=== PATIENT | female | born 1990 | race Caucasian/White ===

== ENCOUNTER 2016-10-15 01:08 | Inpatient (IN) | payer BC ==
--- NOTE | 2016-10-02 19:02 | PROGRESS NOTE:Antepartum ---
Assessment and Plan - Date of Encounter Date of Encounter: 10/15/16 (1) Term Status: Acute Assessment and plan: Patient in early active labor. AROM at 2am of clear fluid. Continue expectant management. Current Visit: Yes - Time Spent With Patient Total time spent with greater than 50% in coordination of care (as documented) at patient's floor/unit and/or counseling patient: POTASH FLAKER: Antepartum PN Subj - Subjective Interval history: 26 yo with EDC of October 26 2016 by certain LMP of 01/20/16. She is 38 3/7 weeks. She has been having increasing abdominal pains through the day. She had a hard time characterizing them. It was associated with increased d/c and scant pink blood. No large GOF. [place] like she had decreased movement. I met her at my clinic in [place]. She was placed on a monitor with FHT's 150's and very frequent movement. Contractions q 2-3 min and this was the pain she felt. She rated it 5-6/10 at it's worst but varied in strength. On the drive in her contractions remained q 2-4 minutes and increasing in strength. PMHx: none PSHX: T&A age 5 Meds: PNV, Benefiber, Pepcid, Tums NKDA SHX: to [facility], medical front desk coordinator for [facility], No TOB, ETOH, MJ, IVDA FHX: Father of Colon CA at 51, MGF Lung CA, MGM Breast CA in 30's Mom Healthy Prenatals: GBS neg, A+, Ab neg, RI, PAP nl, H/H 1546, HIV NR, RPR Neg, Hep B neg. GC/CT neg. declined FTRA, MSAFP neg, 1 hour GTT 122, 20 wk U/S S=D, anterior placenta. Had flu shot at [facility], Adacel 09/03/16, Antepartum ROS: vaginal bleeding (scant pink), contractions (q 2-4), movement normal, no loss of fluid, no headache, no shortness of breath, no swelling POTASH FLAKER: Antepartum PN Obj Exam - Latest Vital Signs and I&O Latest Vital Signs/I&O: 10/15/16 01:27 64 inches , 184# 10/15/16 01:27 - Exam Heart Monitor: category II (at time of AROM significantly more variability ) Heart Rhythm: Present: regular Extremities: Present: normal. Absent: tenderness, edema Cervical Dilatation Degree: 5 Cervical Effacement Percentage: 90 Station: -1
[2016-10-15] MEDS ORDERED: ONDANSETRON HCL 4 MG/2 ML VIAL IV PRN (01:15)
[2016-10-15] MEDS ORDERED: LIDOCAINE HCL/PF 1% 30 ML VIAL SUBCUT PRN (01:15)
[2016-10-15] MEDS ORDERED: HOME MEDICATION LIST NEEDED 1 EA EACH MISC ONE (01:15)
[2016-10-15] MEDS ORDERED: OXYTOCIN/NORMAL SALINE 30 UNIT/500 ML BAG IV SCH ×2 (01:15→12:00)
[2016-10-15] MEDS ORDERED: MISOPROSTOL 200 MCG TABLET PO PRN (01:15)
[2016-10-15 02:54] LABS: URINE MUCUS NONE SEEN (Up to 25%)
[2016-10-15 02:56] LABS: BASOPHILS 0.3 % (0.0-2.0); EOSINOPHILS 0.3 % (0.0-6.0); HEMATOCRIT 39.9 % (36.0-48.0); HEMOGLOBIN 13.9 g/dL (12.0-16.0); LYMPHOCYTES 15.6 % (20.0-40.0); LYMPHOCYTES# 2.5 X 10^3uL (0.8-3.8); MEAN CELL VOLUME 90.6 fL (80.0-100.0); MEAN CORPUS. HGB CONCENTRATION 34.9 g/dL (32.0-36.0); MEAN CORPUSCULAR HEMOGLOBIN 31.6 pg (29.0-35.0); MEAN PLATELET VOLUME 10.4 fL (7.4-10.4); MONOCYTES 6.5 % (2.0-10.0); NEUTROPHILS 77.3 % (54.0-75.0); NEUTROPHILS# 12.6 X 10^3uL (2.6-6.7); PLATELET COUNT 225 X 10^3uL (130-440); RED CELL DISTRIBUTION WIDTH 12.8 % (11.5-14.5); WHITE BLOOD COUNT 16.1 X 10^3uL (3.9-10.7)
[2016-10-15] MEDS: FENTANYL 100 MCG/2 ML VIAL IV PRN ×4 (03:00→03:26)
[2016-10-15] MEDS ORDERED: LACTATED RINGERS 1,000 ML IV ONE (03:11)
[2016-10-15 04:13] LABS: URINE APPEARANCE CLOUDY; URINE COLOR YELLOW; URINE LEUKOCYTE ESTERASE 25 WBC/uL (1+) (NEGATIVE); URINE NITRITE NEGATIVE (NEGATIVE); URINE PROTEIN 10mg/dL (trace) (NEG - TRACE); URINE SPECIFIC GRAVITY 1.025 (0.001-1.035)
[2016-10-15 04:14] LABS: URINE BILIRUBIN NEGATIVE (NEGATIVE); URINE BLOOD 250 Ery/uL (3+) (NEGATIVE); URINE GLUCOSE NORMAL (NEGATIVE); URINE KETONE NEGATIVE (NEGATIVE); URINE RBC 0-5/hpf (0-5/hpf); URINE UROBILINOGEN 0.2mg/dL (Normal) (NEG-1mg/dL)
[2016-10-15] MEDS: LACTATED RINGERS 1,000 ML IV SCH ×4 (04:50→12:22)
--- NOTE | 2016-10-15 05:25 | PROGRESS NOTE:Antepartum ---
Assessment and Plan - Date of Encounter Date of Encounter: 10/15/16 (1) Term Status: Acute Assessment and plan: Patient in active labor. AROM at 2am of clear fluid. Continue expectant management. Anesthesia here for ROXANNE. Current Visit: Yes - Time Spent With Patient Total time spent with greater than 50% in coordination of care (as documented) at patient's floor/unit and/or counseling patient: SPECIAL CRIMES INVESTIGATOR: Antepartum PN Subj - Subjective Interval history: Pain no longer tolerable. Desires ROXANNE. Ctx q 2. Patient reports: pain poorly controlled Antepartum ROS: vaginal bleeding (scant pink), contractions (q 2-4), loss of fluid (clear), movement normal, no headache, no shortness of breath, no swelling SPECIAL CRIMES INVESTIGATOR: Antepartum PN Obj Exam - Latest Vital Signs and I&O Latest Vital Signs/I&O: Vital Signs Temp 35.8 C L 10/15/16 05:15 Pulse 109 H 10/15/16 05:15 Resp 20 10/15/16 05:15 BP 136/77 10/15/16 05:15 Pulse Ox 95 10/15/16 01:40 Intake & Output 10/14/16 10/14/16 10/15/16 05:59 17:59 05:59 Intake Total 120 Balance 120 Weight 84.368 kg Intake: Oral 120 Other: Urine Appearance Clear Urine Color Yellow Stool Size Small Stool Characteristics Soft Formed Voiding Method Toilet # Voids 1 # Bowel Movements 1 - Exam Heart Monitor: category II (Accels but occasional variables, Excellent variabiliity) Heart Rhythm: Present: regular Extremities: Present: normal. Absent: tenderness, edema Cervical Dilatation Degree: 7 Cervical Effacement Percentage: 100 Station: +1 - Lab Labs: Laboratory Last Values WBC 16.1 X 10^3uL (3.9-10.7) H 10/15/16 01:45 RBC 4.40 X 10^6uL (4.20-6.10) 10/15/16 01:45 Hgb 13.9 g/dL (12.0-16.0) 10/15/16 01:45 Hct 39.9 % (36.0-48.0) 10/15/16 01:45 MCV 90.6 fL (80.0-100.0) 10/15/16 01:45 MCH 31.6 pg (29.0-35.0) 10/15/16 01:45 MCHC 34.9 g/dL (32.0-36.0) 10/15/16 01:45 RDW 12.8 % (11.5-14.5) 10/15/16 01:45 Plt Count 225 X 10^3uL (130-440) 10/15/16 01:45 MPV 10.4 fL (7.4-10.4) 10/15/16 01:45 Neutrophils % 77.3 % (54.0-75.0) H 10/15/16 01:45 Lymphocytes % 15.6 % (20.0-40.0) L 10/15/16 01:45 Eosinophils % 0.3 % (0.0-6.0) 10/15/16 01:45 Basophils % 0.3 % (0.0-2.0) 10/15/16 01:45 Neutrophils # 12.6 X 10^3uL (2.6-6.7) H 10/15/16 01:45 Lymphocytes # 2.5 X 10^3uL (0.8-3.8) 10/15/16 01:45 Monocytes 6.5 % (2.0-10.0) 10/15/16 01:45 Monocytes # 1.0 X 10^3uL (0.2-1.0) 10/15/16 01:45 Eosinophils # 0.0 X 10^3uL (0.0-0.4) 10/15/16 01:45 Basophils # 0.0 X 10^3uL (0.0-0.1) 10/15/16 01:45 Urine Color Yellow 10/15/16 01:35 Urine Appearance Cloudy A 10/15/16 01:35 Urine pH 6.0 (5-7) 10/15/16 01:35 Ur Specific [place] 1.025 (0.001-1.035) 10/15/16 01:35 Urine Protein 10mg/dl (trace) (NEG - TRACE) 10/15/16 01:35 Urine Ketones Negative (NEGATIVE) 10/15/16 01:35 Urine Blood 250 greer/ul (3+) (NEGATIVE) A 10/15/16 01:35 Urine Nitrate Negative (NEGATIVE) 10/15/16 01:35 Urine Bilirubin Negative (NEGATIVE) 10/15/16 01:35 Urine Urobilinogen 0.2mg/dl (normal) (NEG-1mg/dL) 10/15/16 01:35 Ur Leukocyte Esterase 25 wbc/ul (1+) (NEGATIVE) A 10/15/16 01:35 Urine RBC 0-5/hpf (0-5/hpf) 10/15/16 01:35 Urine WBC 25-50/hpf (0-4/hpf) A 10/15/16 01:35 Ur Squamous Epith Cells 5-10/hpf (<= 15/hpf) 10/15/16 01:35 Urine Bacteria 20-50 organisms/hpf (<10/hpf) A 10/15/16 01:35 Urine Mucus None seen (Up to 25%) 10/15/16 01:35 Urine Glucose Normal (NEGATIVE) 10/15/16 01:35
[2016-10-15] MEDS ORDERED: EPHEDrine SULFATE 50 MG/ML VIAL IV PRN (06:30)
[2016-10-15] MEDS ORDERED: BUPIVACAINE HCL/PF 0.25% 30 ML VIAL IV ONE (06:30)
[2016-10-15 06:39] LABS: ABO GROUP TYPE A
[2016-10-15 06:40] LABS: ANTIBODY SCREEN NEGATIVE; RH TYPE POSITIVE
--- NOTE | 2016-10-15 06:42 | PROGRESS NOTE:Antepartum ---
Assessment and Plan - Date of Encounter Date of Encounter: 10/15/16 (1) Term Status: Acute Assessment and plan: Patient in active labor. AROM at 2am of clear fluid. Continue expectant management. Difficult ROXANNE but in excellent position now. Patient has had relief for 1 hour from first attempt /test dose. Unable to push bolus so catheter replaced but she is comfortable. Current Visit: Yes - Time Spent With Patient Total time spent with greater than 50% in coordination of care (as documented) at patient's floor/unit and/or counseling patient: MACHINE BURRER: Antepartum PN Subj - Subjective Patient reports: pain poorly controlled Antepartum ROS: vaginal bleeding (scant pink), contractions (q 2-4), loss of fluid (clear), movement normal, no headache, no shortness of breath, no swelling MACHINE BURRER: Antepartum PN Obj Exam - Latest Vital Signs and I&O Latest Vital Signs/I&O: Vital Signs Temp 36.7 C 10/15/16 06:15 Pulse 116 H 10/15/16 05:55 Resp 16 10/15/16 06:15 BP 127/79 10/15/16 05:55 Pulse Ox 94 10/15/16 06:15 Intake & Output 10/14/16 10/15/16 10/15/16 17:59 05:59 17:59 Intake Total 2120 Balance 2120 Weight 84.368 kg Intake: IV 2000 Left Introducer Sheath 1000 Forearm Lr 1000 ml Bag 1,000 ml @ 1000 125 mls/hr IV CONT VANESSA Rx#:[id number] Oral 120 Other: Urine Appearance Clear Urine Color Yellow Stool Size Small Stool Characteristics Soft Formed Voiding Method Toilet # Voids 1 # Bowel Movements 1 - Exam Heart Monitor: category II (Accels but occasional variables, Excellent variabiliity) Heart Rhythm: Present: regular Extremities: Present: normal. Absent: tenderness, edema Cervical Dilatation Degree: 8 Cervical Effacement Percentage: 100 Station: +1 - Lab Labs: Laboratory Last Values WBC 16.1 X 10^3uL (3.9-10.7) H 10/15/16 01:45 RBC 4.40 X 10^6uL (4.20-6.10) 10/15/16 01:45 Hgb 13.9 g/dL (12.0-16.0) 10/15/16 01:45 Hct 39.9 % (36.0-48.0) 10/15/16 01:45 MCV 90.6 fL (80.0-100.0) 10/15/16 01:45 MCH 31.6 pg (29.0-35.0) 10/15/16 01:45 MCHC 34.9 g/dL (32.0-36.0) 10/15/16 01:45 RDW 12.8 % (11.5-14.5) 10/15/16 01:45 Plt Count 225 X 10^3uL (130-440) 10/15/16 01:45 MPV 10.4 fL (7.4-10.4) 10/15/16 01:45 Neutrophils % 77.3 % (54.0-75.0) H 10/15/16 01:45 Lymphocytes % 15.6 % (20.0-40.0) L 10/15/16 01:45 Eosinophils % 0.3 % (0.0-6.0) 10/15/16 01:45 Basophils % 0.3 % (0.0-2.0) 10/15/16 01:45 Neutrophils # 12.6 X 10^3uL (2.6-6.7) H 10/15/16 01:45 Lymphocytes # 2.5 X 10^3uL (0.8-3.8) 10/15/16 01:45 Monocytes 6.5 % (2.0-10.0) 10/15/16 01:45 Monocytes # 1.0 X 10^3uL (0.2-1.0) 10/15/16 01:45 Eosinophils # 0.0 X 10^3uL (0.0-0.4) 10/15/16 01:45 Basophils # 0.0 X 10^3uL (0.0-0.1) 10/15/16 01:45 Urine Color Yellow 10/15/16 01:35 Urine Appearance Cloudy A 10/15/16 01:35 Urine pH 6.0 (5-7) 10/15/16 01:35 Ur Specific [place] 1.025 (0.001-1.035) 10/15/16 01:35 Urine Protein 10mg/dl (trace) (NEG - TRACE) 10/15/16 01:35 Urine Ketones Negative (NEGATIVE) 10/15/16 01:35 Urine Blood 250 greer/ul (3+) (NEGATIVE) A 10/15/16 01:35 Urine Nitrate Negative (NEGATIVE) 10/15/16 01:35 Urine Bilirubin Negative (NEGATIVE) 10/15/16 01:35 Urine Urobilinogen 0.2mg/dl (normal) (NEG-1mg/dL) 10/15/16 01:35 Ur Leukocyte Esterase 25 wbc/ul (1+) (NEGATIVE) A 10/15/16 01:35 Urine RBC 0-5/hpf (0-5/hpf) 10/15/16 01:35 Urine WBC 25-50/hpf (0-4/hpf) A 10/15/16 01:35 Ur Squamous Epith Cells 5-10/hpf (<= 15/hpf) 10/15/16 01:35 Urine Bacteria 20-50 organisms/hpf (<10/hpf) A 10/15/16 01:35 Urine Mucus None seen (Up to 25%) 10/15/16 01:35 Urine Glucose Normal (NEGATIVE) 10/15/16 01:35
[2016-10-15] MEDS ORDERED: BUPIVACAINE HCL/PF 0.5% 30 ML VIAL ONE (06:46)
[2016-10-15] MEDS: ROPIVACAINE HCL IN 0.9%NACL/PF 120 MG/60 ML SYRINGE ONE ×3 (07:25→16:58)
[2016-10-15] MEDS ORDERED: PHENYLEPHRINE HCL 10,000 MCG/ML VIAL IV PRN (07:26)
[2016-10-15] MEDS ORDERED: PHENYLEPHRINE HCL 10,000 MCG/ML VIAL ONE (07:35)
[2016-10-15] MEDS ORDERED: NORMAL SALINE FLUSH 10 ML ONE (07:35)
[2016-10-15] MEDS ORDERED: EPHEDrine SULFATE 50 MG/ML VIAL ONE (07:36)
[2016-10-15] MEDS ORDERED: METOCLOPRAMIDE HCL 10 MG/2 ML VIAL IV PRN (08:21)
[2016-10-15] MEDS ORDERED: FAMOTIDINE IN SALINE, ISO-OSM 20 MG/50 ML PIGGYBACK IV ONE (08:23)
--- NOTE | 2016-10-15 08:53 | PROGRESS NOTE:Antepartum ---
Assessment and Plan - Date of Encounter Date of Encounter: 10/15/16 (1) Term Status: Acute Assessment and plan: Patient in active labor. AROM at 2am of clear fluid. Continue expectant management. Difficult ROXANNE but in excellent position now. BP's now excellent. Category II with good variability. Backing off slightly on ROXANNE as very dense. Allow patient to labor down once complete. Current Visit: Yes - Time Spent With Patient Total time spent with greater than 50% in coordination of care (as documented) at patient's floor/unit and/or counseling patient: BRANCH MANAGER: Antepartum PN Subj - Subjective Interval history: Patient had some ROXANNE related hypotension that corrected with ephedrine. Now BP' s 110-120. no pain. Patient reports: pain well controlled, nausea Antepartum ROS: vaginal bleeding (scant pink), contractions (q 2-4), loss of fluid (clear), movement normal, no headache, no shortness of breath, no swelling BRANCH MANAGER: Antepartum PN Obj Exam - Latest Vital Signs and I&O Latest Vital Signs/I&O: Vital Signs Temp 36.6 C 10/15/16 07:59 Pulse 107 H 10/15/16 08:32 Resp 18 10/15/16 08:32 BP 116/66 10/15/16 08:32 Pulse Ox 95 10/15/16 08:32 Intake & Output 10/14/16 10/15/16 10/15/16 17:59 05:59 17:59 Intake Total 2120 1000 Output Total 200 Balance 2120 800 Weight 84.368 kg Intake: IV 2000 1000 Left Introducer Sheath 1000 Forearm Lr 1000 ml Bag 1,000 ml @ 1000 1000 125 mls/hr IV CONT VANESSA Rx#:[id number] Oral 120 Output: Urine 200 Uretheral (Cordero) 200 Other: Urine Appearance Clear Clear Urine Color Yellow Yellow Uretheral (Cordero) Yellow Stool Size Small Small Stool Characteristics Soft Soft Formed Formed Voiding Method Toilet Indwelling Catheter # Voids 1 # Bowel Movements 1 - Exam Heart Monitor: category II (Accels but occasional variables, Excellent variabiliity) Heart Rhythm: Present: regular Extremities: Present: normal. Absent: tenderness, edema Cervical Dilatation Degree: 9 Cervical Effacement Percentage: 100 Station: +1 - Lab Labs: Laboratory Last Values WBC 16.1 X 10^3uL (3.9-10.7) H 10/15/16 01:45 RBC 4.40 X 10^6uL (4.20-6.10) 10/15/16 01:45 Hgb 13.9 g/dL (12.0-16.0) 10/15/16 01:45 Hct 39.9 % (36.0-48.0) 10/15/16 01:45 MCV 90.6 fL (80.0-100.0) 10/15/16 01:45 MCH 31.6 pg (29.0-35.0) 10/15/16 01:45 MCHC 34.9 g/dL (32.0-36.0) 10/15/16 01:45 RDW 12.8 % (11.5-14.5) 10/15/16 01:45 Plt Count 225 X 10^3uL (130-440) 10/15/16 01:45 MPV 10.4 fL (7.4-10.4) 10/15/16 01:45 Neutrophils % 77.3 % (54.0-75.0) H 10/15/16 01:45 Lymphocytes % 15.6 % (20.0-40.0) L 10/15/16 01:45 Eosinophils % 0.3 % (0.0-6.0) 10/15/16 01:45 Basophils % 0.3 % (0.0-2.0) 10/15/16 01:45 Neutrophils # 12.6 X 10^3uL (2.6-6.7) H 10/15/16 01:45 Lymphocytes # 2.5 X 10^3uL (0.8-3.8) 10/15/16 01:45 Monocytes 6.5 % (2.0-10.0) 10/15/16 01:45 Monocytes # 1.0 X 10^3uL (0.2-1.0) 10/15/16 01:45 Eosinophils # 0.0 X 10^3uL (0.0-0.4) 10/15/16 01:45 Basophils # 0.0 X 10^3uL (0.0-0.1) 10/15/16 01:45 Urine Color Yellow 10/15/16 01:35 Urine Appearance Cloudy A 10/15/16 01:35 Urine pH 6.0 (5-7) 10/15/16 01:35 Ur Specific [place] 1.025 (0.001-1.035) 10/15/16 01:35 Urine Protein 10mg/dl (trace) (NEG - TRACE) 10/15/16 01:35 Urine Ketones Negative (NEGATIVE) 10/15/16 01:35 Urine Blood 250 greer/ul (3+) (NEGATIVE) A 10/15/16 01:35 Urine Nitrate Negative (NEGATIVE) 10/15/16 01:35 Urine Bilirubin Negative (NEGATIVE) 10/15/16 01:35 Urine Urobilinogen 0.2mg/dl (normal) (NEG-1mg/dL) 10/15/16 01:35 Ur Leukocyte Esterase 25 wbc/ul (1+) (NEGATIVE) A 10/15/16 01:35 Urine RBC 0-5/hpf (0-5/hpf) 10/15/16 01:35 Urine WBC 25-50/hpf (0-4/hpf) A 10/15/16 01:35 Ur Squamous Epith Cells 5-10/hpf (<= 15/hpf) 10/15/16 01:35 Urine Bacteria 20-50 organisms/hpf (<10/hpf) A 10/15/16 01:35 Urine Mucus None seen (Up to 25%) 10/15/16 01:35 Urine Glucose Normal (NEGATIVE) 10/15/16 01:35 ABO Group Type a 10/15/16 01:45 Rh Factor Positive 10/15/16 01:45 Antibody Screen Negative 10/15/16 01:45
[2016-10-15] MEDS ORDERED: ROPIVACAINE HCL IN 0.9%NACL/PF 120 MG/60 ML SYRINGE ONE ×2 (11:53→17:08)
--- NOTE | 2016-10-15 12:59 | PROGRESS NOTE:Antepartum ---
Assessment and Plan - Date of Encounter Date of Encounter: 10/15/16 (1) Term Status: Acute Assessment and plan: Patient with arrest of labor possibly due to inadequate contractions. No fever since AROM at 2am of clear fluid, fluid remains clear. Category II with good variability and occasional variables. Start PIT augmentation. Add Narcotics to [place] for improved pain control. Current Visit: Yes (2) Arrested active phase of labor Status: Acute Assessment and plan: Inadequate contraction pattern of 80 MVU. Add pitocin. IUPC in place. Current Visit: Yes - Time Spent With Patient Total time spent with greater than 50% in coordination of care (as documented) at patient's floor/unit and/or counseling patient: CALL CENTER MANAGER: Antepartum PN Subj - Subjective Interval history: Patient continuing to contract q 3 minutes. Increased pain. Anesthesia increased MAXWELL. No cervical change x 3 hours. Anterior rim. I just placed an IUPC and inadequate MVU at only 80. Patient reports: pain poorly controlled Antepartum ROS: vaginal bleeding (scant pink), contractions (q 2-3), loss of fluid (clear), movement normal, no headache, no shortness of breath, no swelling CALL CENTER MANAGER: Antepartum PN Obj Exam - Latest Vital Signs and I&O Latest Vital Signs/I&O: Vital Signs Temp 36.4 C L 10/15/16 12:03 Pulse 106 H 10/15/16 12:03 Resp 18 10/15/16 12:03 BP 126/77 10/15/16 12:30 Pulse Ox 93 10/15/16 12:03 Intake & Output 10/14/16 10/15/16 10/15/16 17:59 05:59 17:59 Intake Total 2120 1000 Output Total 200 Balance 2120 800 Weight 84.368 kg Intake: IV 2000 1000 Left Introducer Sheath 1000 Forearm Lr 1000 ml Bag 1,000 ml @ 1000 1000 125 mls/hr IV CONT VANESSA Rx#:[id number] Oral 120 Output: Urine 200 Uretheral (Cordero) 200 Other: Urine Appearance Clear Clear Urine Color Yellow Yellow Uretheral (Cordero) Yellow Stool Size Small Small Stool Characteristics Soft Soft Formed Formed Voiding Method Toilet Indwelling Catheter # Voids 1 # Bowel Movements 1 10/15/16 12:57 - Exam Heart Monitor: category II (Accels but occasional variables, Excellent variabiliity) Heart Rhythm: Present: regular Extremities: Present: normal. Absent: tenderness, edema Cervical Dilatation Degree: 9 Cervical Effacement Percentage: 100 Station: +1 - Lab Labs: Laboratory Last Values WBC 16.1 X 10^3uL (3.9-10.7) H 10/15/16 01:45 RBC 4.40 X 10^6uL (4.20-6.10) 10/15/16 01:45 Hgb 13.9 g/dL (12.0-16.0) 10/15/16 01:45 Hct 39.9 % (36.0-48.0) 10/15/16 01:45 MCV 90.6 fL (80.0-100.0) 10/15/16 01:45 MCH 31.6 pg (29.0-35.0) 10/15/16 01:45 MCHC 34.9 g/dL (32.0-36.0) 10/15/16 01:45 RDW 12.8 % (11.5-14.5) 10/15/16 01:45 Plt Count 225 X 10^3uL (130-440) 10/15/16 01:45 MPV 10.4 fL (7.4-10.4) 10/15/16 01:45 Neutrophils % 77.3 % (54.0-75.0) H 10/15/16 01:45 Lymphocytes % 15.6 % (20.0-40.0) L 10/15/16 01:45 Eosinophils % 0.3 % (0.0-6.0) 10/15/16 01:45 Basophils % 0.3 % (0.0-2.0) 10/15/16 01:45 Neutrophils # 12.6 X 10^3uL (2.6-6.7) H 10/15/16 01:45 Lymphocytes # 2.5 X 10^3uL (0.8-3.8) 10/15/16 01:45 Monocytes 6.5 % (2.0-10.0) 10/15/16 01:45 Monocytes # 1.0 X 10^3uL (0.2-1.0) 10/15/16 01:45 Eosinophils # 0.0 X 10^3uL (0.0-0.4) 10/15/16 01:45 Basophils # 0.0 X 10^3uL (0.0-0.1) 10/15/16 01:45 Urine Color Yellow 10/15/16 01:35 Urine Appearance Cloudy A 10/15/16 01:35 Urine pH 6.0 (5-7) 10/15/16 01:35 Ur Specific [place] 1.025 (0.001-1.035) 10/15/16 01:35 Urine Protein 10mg/dl (trace) (NEG - TRACE) 10/15/16 01:35 Urine Ketones Negative (NEGATIVE) 10/15/16 01:35 Urine Blood 250 greer/ul (3+) (NEGATIVE) A 10/15/16 01:35 Urine Nitrate Negative (NEGATIVE) 10/15/16 01:35 Urine Bilirubin Negative (NEGATIVE) 10/15/16 01:35 Urine Urobilinogen 0.2mg/dl (normal) (NEG-1mg/dL) 10/15/16 01:35 Ur Leukocyte Esterase 25 wbc/ul (1+) (NEGATIVE) A 10/15/16 01:35 Urine RBC 0-5/hpf (0-5/hpf) 10/15/16 01:35 Urine WBC 25-50/hpf (0-4/hpf) A 10/15/16 01:35 Ur Squamous Epith Cells 5-10/hpf (<= 15/hpf) 10/15/16 01:35 Urine Bacteria 20-50 organisms/hpf (<10/hpf) A 10/15/16 01:35 Urine Mucus None seen (Up to 25%) 10/15/16 01:35 Urine Glucose Normal (NEGATIVE) 10/15/16 01:35 ABO Group Type a 10/15/16 01:45 Rh Factor Positive 10/15/16 01:45 Antibody Screen Negative 10/15/16 01:45
[2016-10-15] MEDS ORDERED: NORMAL SALINE 10 ML VIAL ONE (13:20)
[2016-10-15] MEDS ORDERED: BUPIVACAINE HCL/PF 0.25% 10 ML VIAL INJ ONE (13:20)
--- NOTE | 2016-10-15 14:35 | PROGRESS NOTE:Antepartum ---
Assessment and Plan - Date of Encounter Date of Encounter: 10/15/16 (1) Term Status: Acute Assessment and plan: Patient with final centimeter of progress and now complete. No fever since AROM at 2am of clear fluid, fluid remains clear. Category II with good variability and occasional variables. Continue PIT augmentation at 4 mu, but will not increase due to variables but now progress. Added Narcotics to ROXANNE with significant improved pain control. Current Visit: Yes (2) Arrested active phase of labor Status: Acute Current Visit: Yes - Time Spent With Patient Total time spent with greater than 50% in coordination of care (as documented) at patient's floor/unit and/or counseling patient: ADMITTING COUNSELOR: Antepartum PN Subj - Subjective Patient reports: pain well controlled Antepartum ROS: vaginal bleeding (scant pink), contractions (q 2-3), loss of fluid (clear), movement normal, no headache, no shortness of breath, no swelling ADMITTING COUNSELOR: Antepartum PN Obj Exam - Latest Vital Signs and I&O Latest Vital Signs/I&O: Vital Signs Temp 37.1 C 10/15/16 13:57 Pulse 90 10/15/16 13:57 Resp 18 10/15/16 13:57 BP 121/71 10/15/16 13:57 Pulse Ox 93 10/15/16 13:57 Intake & Output 10/14/16 10/15/16 10/15/16 17:59 05:59 17:59 Intake Total 2120 1000 Output Total 200 Balance 2120 800 Weight 84.368 kg Intake: IV 2000 1000 Left Introducer Sheath 1000 Forearm Lr 1000 ml Bag 1,000 ml @ 1000 1000 125 mls/hr IV CONT VANESSA Rx#:[id number] Oral 120 Output: Urine 200 Uretheral (Cordero) 200 Other: Urine Appearance Clear Clear Urine Color Yellow Yellow Uretheral (Cordero) Yellow Stool Size Small Small Stool Characteristics Soft Soft Formed Formed Voiding Method Toilet Indwelling Catheter # Voids 1 # Bowel Movements 1 - Exam Heart Monitor: category II (Accels but occasional variables, Excellent variabiliity) Heart Rhythm: Present: regular Extremities: Present: normal. Absent: tenderness, edema Cervical Dilatation Degree: 10 Cervical Effacement Percentage: 100 Station: +2 - Lab Labs: Laboratory Last Values WBC 16.1 X 10^3uL (3.9-10.7) H 10/15/16 01:45 RBC 4.40 X 10^6uL (4.20-6.10) 10/15/16 01:45 Hgb 13.9 g/dL (12.0-16.0) 10/15/16 01:45 Hct 39.9 % (36.0-48.0) 10/15/16 01:45 MCV 90.6 fL (80.0-100.0) 10/15/16 01:45 MCH 31.6 pg (29.0-35.0) 10/15/16 01:45 MCHC 34.9 g/dL (32.0-36.0) 10/15/16 01:45 RDW 12.8 % (11.5-14.5) 10/15/16 01:45 Plt Count 225 X 10^3uL (130-440) 10/15/16 01:45 MPV 10.4 fL (7.4-10.4) 10/15/16 01:45 Neutrophils % 77.3 % (54.0-75.0) H 10/15/16 01:45 Lymphocytes % 15.6 % (20.0-40.0) L 10/15/16 01:45 Eosinophils % 0.3 % (0.0-6.0) 10/15/16 01:45 Basophils % 0.3 % (0.0-2.0) 10/15/16 01:45 Neutrophils # 12.6 X 10^3uL (2.6-6.7) H 10/15/16 01:45 Lymphocytes # 2.5 X 10^3uL (0.8-3.8) 10/15/16 01:45 Monocytes 6.5 % (2.0-10.0) 10/15/16 01:45 Monocytes # 1.0 X 10^3uL (0.2-1.0) 10/15/16 01:45 Eosinophils # 0.0 X 10^3uL (0.0-0.4) 10/15/16 01:45 Basophils # 0.0 X 10^3uL (0.0-0.1) 10/15/16 01:45 Urine Color Yellow 10/15/16 01:35 Urine Appearance Cloudy A 10/15/16 01:35 Urine pH 6.0 (5-7) 10/15/16 01:35 Ur Specific [place] 1.025 (0.001-1.035) 10/15/16 01:35 Urine Protein 10mg/dl (trace) (NEG - TRACE) 10/15/16 01:35 Urine Ketones Negative (NEGATIVE) 10/15/16 01:35 Urine Blood 250 greer/ul (3+) (NEGATIVE) A 10/15/16 01:35 Urine Nitrate Negative (NEGATIVE) 10/15/16 01:35 Urine Bilirubin Negative (NEGATIVE) 10/15/16 01:35 Urine Urobilinogen 0.2mg/dl (normal) (NEG-1mg/dL) 10/15/16 01:35 Ur Leukocyte Esterase 25 wbc/ul (1+) (NEGATIVE) A 10/15/16 01:35 Urine RBC 0-5/hpf (0-5/hpf) 10/15/16 01:35 Urine WBC 25-50/hpf (0-4/hpf) A 10/15/16 01:35 Ur Squamous Epith Cells 5-10/hpf (<= 15/hpf) 10/15/16 01:35 Urine Bacteria 20-50 organisms/hpf (<10/hpf) A 10/15/16 01:35 Urine Mucus None seen (Up to 25%) 10/15/16 01:35 Urine Glucose Normal (NEGATIVE) 10/15/16 01:35 ABO Group Type a 10/15/16 01:45 Rh Factor Positive 10/15/16 01:45 Antibody Screen Negative 10/15/16 01:45
--- NOTE | 2016-10-15 18:48 | PROCEDURE NOTE: Vaginal Del ---
OB Procedure Vaginal Delivery - Vaginal Delivery Estimated Gestational Age (weeks): 38 Delivery Presentation: vertex Delivery Position: KATY Heart Monitor: category II Intrapartum Events: prolonged active phase (arrest of labor at 9 cm for 5 hours) , prolonged 2nd stage>2.5hr (4 hours at complete) Delivery Induction: none Delivery Augmentation: rupture of membranes (at 5 cm, 16 hrs prior to delivery) Amniotic Fluid: clear Delivery Monitor: external FHT, internal uterine Delivery Method: Shoulders: without difficulty Placenta delivered: yes Delivery Placenta: spontaneous Delivery Cord: 3 Vessels Nuchal Cord # of Loops: 0 Cord clamped: Yes Cord blood obtained: Yes Episiotomy: none Delivery Laceration: 1st degree Suture Type for Laceration Repair: 3.0 Vicryl at 1 minute: 9 at 5 minutes: 9 Infant Gender: Female Estimate Blood Loss Delivery: 100cc Anesthesia: Epidural Patient tolerated procedure: well Delivery Complications: Present: none Additional comments: 26 yo at 38 weeks presented in early labor at 2am to hospital. She was 5 cm with BBOW. CTX q 2-3. AROM of clear fluid. Had slow progress and had ROXANNE at 7 cm. Still had frequent ctx q 2-3 min. After arrest of labor at 9 cm I placed an IUPC and eventually started pit as ctx q 2-3 but only 60 mvu. She had variables so limited on Pit and only received 4 mu until last 30 min of pushing when she increased to 6. Frequent intermittent variables but no CAT III strip. Consistently Cat II with accels. Second stage was just over 4 hours. Allowed to "labor down" for 2 hours but patient wanted to push. She pushed 2 hours. Baby girl delivered over intact placenta in KATY position. Had posterior hand at neck. No nuchal cord. Bulb suction on perineum. placed on Mom's abd for dry and stim. Apgars 9,9. Third stage lasted only 3 minutes and no PPH. Cord clamp delayed 1-2 minutes and cut by FOC. Small first degree tear repaired with 3.0 vicryl.
[2016-10-15] MEDS ORDERED: DIPHENHYDRAMINE 25 MG CAPSULE PO PRN (19:15)
[2016-10-15] MEDS ORDERED: HC ACETATE/PRAMOXINE HCL FOAM 1 APPLIC APP RECTAL PRN (19:15)
[2016-10-15] MEDS ORDERED: LANOLIN CREAM 1 APP/7 GM TUBE TOPICAL PRN (19:15)
[2016-10-15] MEDS ORDERED: ACETAMINOPHEN 325 MG TABLET PO PRN (19:15)
[2016-10-15] MEDS ORDERED: WITCH HAZEL 1 EACH MED..PAD TOPICAL PRN (19:15)
[2016-10-15] MEDS ORDERED: MAGNESIUM HYDROXIDE 30 ML UDC PO PRN (19:15)
[2016-10-15] MEDS ORDERED: BENZOCAINE/LANOLIN/ALOE 1 SPRAY BOTTLE TOPICAL PRN (19:15)
[2016-10-15] MEDS: IBUPROFEN 600 MG TABLET PO PRN (20:12)
[2016-10-15] MEDS: DOCUSATE SODIUM 100 MG CAPSULE PO SCH (20:14)
[2016-10-16] MEDS: IBUPROFEN 600 MG TABLET PO PRN ×3 (02:07→20:32)
[2016-10-16 06:37] LABS: HEMATOCRIT 37.4 % (36.0-48.0); HEMOGLOBIN 12.7 g/dL (12.0-16.0)
[2016-10-16] MEDS: DOCUSATE SODIUM 100 MG CAPSULE PO SCH ×2 (08:01→20:31)
--- NOTE | 2016-10-16 12:07 | PROGRESS NOTE:Vaginal Delivery ---
Assessment and Plan - Date of Encounter Date of Encounter: 10/16/16 (1) care following vaginal delivery Status: Acute Assessment and plan: Stable, plan routine care. Current Visit: Yes - Time Spent With Patient Total time spent with greater than 50% in coordination of care (as documented) at patient's floor/unit and/or counseling patient: ATHLETIC FIELD CUSTODIAN: Vag Del PN Subjective Interval history: States she has been doing well since delivery. Post- Day: 1 Patient reports: appetite normal, voiding normally, pain well controlled : doing well, nursing well ATHLETIC FIELD CUSTODIAN: Vag Del PN Obj Exam - Latest Vital Signs and I&O Latest Vital Signs/I&O: Vital Signs Temp 36.6 C 10/16/16 11:42 Pulse 78 10/16/16 11:42 Resp 16 10/16/16 11:42 BP 89/52 10/16/16 11:42 Pulse Ox 94 10/16/16 11:42 Intake & Output 10/15/16 10/16/16 10/16/16 17:59 05:59 17:59 Intake Total 1006 900 Output Total 1050 1550 Balance -44 -650 Intake: IV 1006 Pitocin/Ns 30 Unit/500 ml 6 30 unit IV CONT VANESSA Rx#: [id number] Lr 1000 ml Bag 1,000 ml @ 1000 125 mls/hr IV CONT VANESSA Rx#:[id number] Oral 900 Output: Urine 1050 1550 Uretheral (Cordero) 200 Other: Urine Appearance Clear Clear Clear Urine Color Light Re Light Re Light Re Uretheral (Cordero) Yellow Stool Size Small Small Stool Characteristics Soft Soft Formed Formed Voiding Method Indwelling Catheter Toilet Toilet # Voids 1 - Exam Heart Rhythm: Present: regular Extremities: Present: edema. Absent: tenderness Abdomen: Present: soft Uterus: Present: firm, non tender - Lab Labs: Laboratory Last Values WBC 16.1 X 10^3uL (3.9-10.7) H 10/15/16 01:45 RBC 4.40 X 10^6uL (4.20-6.10) 10/15/16 01:45 Hgb 12.7 g/dL (12.0-16.0) 10/16/16 06:20 Hct 37.4 % (36.0-48.0) 10/16/16 06:20 MCV 90.6 fL (80.0-100.0) 10/15/16 01:45 MCH 31.6 pg (29.0-35.0) 10/15/16 01:45 MCHC 34.9 g/dL (32.0-36.0) 10/15/16 01:45 RDW 12.8 % (11.5-14.5) 10/15/16 01:45 Plt Count 225 X 10^3uL (130-440) 10/15/16 01:45 MPV 10.4 fL (7.4-10.4) 10/15/16 01:45 Neutrophils % 77.3 % (54.0-75.0) H 10/15/16 01:45 Lymphocytes % 15.6 % (20.0-40.0) L 10/15/16 01:45 Eosinophils % 0.3 % (0.0-6.0) 10/15/16 01:45 Basophils % 0.3 % (0.0-2.0) 10/15/16 01:45 Neutrophils # 12.6 X 10^3uL (2.6-6.7) H 10/15/16 01:45 Lymphocytes # 2.5 X 10^3uL (0.8-3.8) 10/15/16 01:45 Monocytes 6.5 % (2.0-10.0) 10/15/16 01:45 Monocytes # 1.0 X 10^3uL (0.2-1.0) 10/15/16 01:45 Eosinophils # 0.0 X 10^3uL (0.0-0.4) 10/15/16 01:45 Basophils # 0.0 X 10^3uL (0.0-0.1) 10/15/16 01:45 Urine Color Yellow 10/15/16 01:35 Urine Appearance Cloudy A 10/15/16 01:35 Urine pH 6.0 (5-7) 10/15/16 01:35 Ur Specific [place] 1.025 (0.001-1.035) 10/15/16 01:35 Urine Protein 10mg/dl (trace) (NEG - TRACE) 10/15/16 01:35 Urine Ketones Negative (NEGATIVE) 10/15/16 01:35 Urine Blood 250 greer/ul (3+) (NEGATIVE) A 05/29/17 01:35 Urine Nitrate Negative (NEGATIVE) 10/15/16 01:35 Urine Bilirubin Negative (NEGATIVE) 10/15/16 01:35 Urine Urobilinogen 0.2mg/dl (normal) (NEG-1mg/dL) 10/15/16 01:35 Ur Leukocyte Esterase 25 wbc/ul (1+) (NEGATIVE) A 10/15/16 01:35 Urine RBC 0-5/hpf (0-5/hpf) 10/15/16 01:35 Urine WBC 25-50/hpf (0-4/hpf) A 10/15/16 01:35 Ur Squamous Epith Cells 5-10/hpf (<= 15/hpf) 10/15/16 01:35 Urine Bacteria 20-50 organisms/hpf (<10/hpf) A 10/15/16 01:35 Urine Mucus None seen (Up to 25%) 10/15/16 01:35 Urine Glucose Normal (NEGATIVE) 10/15/16 01:35 ABO Group Type a 10/15/16 01:45 Rh Factor Positive 10/15/16 01:45 Antibody Screen Negative 10/15/16 01:45
[2016-10-17] MEDS: IBUPROFEN 600 MG TABLET PO PRN (05:12)
[2016-10-17 05:56] VITALS: O2SAT 93
--- NOTE | 2016-10-17 07:28 | DC SUMMARY: Obstetrical/GYN ---
Discharge Summary: Surg/OB Provider: Date of Admission: 10/15/16 Admitting Provider: AMADOU FELTON MD Attending Provider: AMADOU FELTON MD Discharging Provider: STEFANY MARIANO MD Primary Care Provider: Discharge Date: 10/17/16 - Diagnosis (1) care following vaginal delivery Status: Acute Hospital Course: Ms. MARTIN is a 26 year old female at 38 weeks presented in early labor at 2am to hospital. She was 5 cm with BBOW. CTX q 2-3. AROM of clear fluid. Had slow progress and had ROXANNE at 7 cm. Still had frequent ctx q 2-3 min. After arrest of labor at 9 cm an IUPC is placed and eventually started pit as ctx q 2- 3 but only 60 mvu. She had variables so limited on Pit and only received 4 mu until last 30 min of pushing when she increased to 6. Frequent intermittent variables but no CAT III strip. Consistently Cat II with accels. Second stage was just over 4 hours. Allowed to "labor down" for 2 hours but patient wanted to push. She pushed 2 hours. Baby girl delivered over intact placenta in KATY position. Her course was unremarkable and she is discharged to home in good condition. Discharge - Patient/Caregiver Discharge Instructions Activity Level: Pelvic rest Diet: Regular Additional Instructions: Discharge Instructions for Dr. Felton 1. Please make a follow up appointment to see me. 2. Contact me in [place] at [phone] or [place] [phone]. 3. You should use Ibuprofen 600 mg, three times a day for pain. If that is inadequate you may be given a narcotic prescription. Narcotics are very constipating and you should use fiber or Colace to prevent constipation if taking them regularly. You should not drive a car while taking narcotics. 4. Take your vitamins as long as you breast feed or for 6 weeks after delivery. 5. If you are not , wear a jog bra or tight bra for 2 weeks to prevent milk production. Wear this both night and day. If you are having pain , use ice packs and try not to stimulate your nipples. You may also use Ibuprofen and Tylenol. 6. If you are having troubles with breast feeding including pain or sore nipples please call me. Always remind physicians that you are breast feeding if you receive a new medication prescription. 7. To help prevent complications with : a. Ensure good position and latch b. Ensure feeding on demand c. Empty breasts fully d. Use hand expression to help relieve fullness e. Expose breast engorgement to warm water by shower or basin f. Call if unrelieved or if you have questions [place] : Sandra Stroud, ___[phone] Zafar Yeung, __[phone]___ 8. Bleeding is normal for 2-6 weeks after delivery. It may be heavier when you exercise or do more activity. If it seems heavy or you are passing clots please call me. 9. Use Pads only for bleeding. Do not use Tampons. 10. If I request you take iron to help build your blood counts back up you can get this over the counter. The most common form is Iron Sulfate 325 mg. Take one daily. It is best taken on an empty stomach with orange juice. 11. Do not have intercourse until 4-6 weeks after you delivery or until you quit bleeding. 12. You may shower or take sitz baths in 3 inches of warm water but do not soak in hot tubs or take deep baths until you quit bleeding (about 4-6 weeks). 13. If you had a , do not lift anything heavier than your baby for 2 weeks, and do not drive for 2 weeks. You may shower. You do not need to wear a bandage. A small amount of drainage from the incision is normal but if it seems excessive or the wound is red or painful please call me immediately. 14. Please dont hesitate to call with any questions. Follow up: AMADOU FELTON MD [ACTIVE (Staff Physician)] - Next Appointment Overall discharge status: stable Home Medications: Ibuprofen [Motrin] 2 - 3 tab PO Q4H PRN #30 tablet PRN Reason: pain Disposition: HOME, SELF-CARE Obstetrical/[employer]PER[employer] Discharge Exam - Latest Vital Signs and I&O Latest Vital Signs/I&O: Vital Signs Temp 36.7 C 10/17/16 05:50 Pulse 70 10/17/16 05:50 Resp 16 10/17/16 05:50 BP 107/66 10/17/16 05:50 Pulse Ox 93 10/17/16 05:50 Intake & Output 10/16/16 10/17/16 10/17/16 17:59 05:59 17:59 Other: Urine Appearance Clear Urine Color Light Re Stool Size Small Stool Characteristics Soft Formed Voiding Method Toilet Toilet - Exam Heart Rhythm: Present: regular Extremities: Present: edema. Absent: tenderness Abdomen: Present: soft. Absent: tenderness Uterus: Present: firm, non tender Discharge Summary Data - Medication History Medication History: Home Medications Acetaminophen/Diphenhydramine [Tylenol Pm Ex-Strength Caplet] 1 each PO QID PRN 10/15/16 Famotidine [Pepcid] 40 mg PO PRN PRN 10/15/16 Pnv95/Ferrous Fumarate/FA [ Vitamin Tablet] 1 each PO DAILY 10/15/16 Inpatient Medications 10/15/16 19:15 Acetaminophen [Tylenol] 650 mg PO Q6H PRN Benzocaine/Lanolin/Aloe [Dermoplast [place]] 1 spray TOPICAL PRN PRN Diphenhydramine [Benadryl] 50 mg PO HS PRN Docusate Sodium [Colace] 100 mg PO Q12H Hc Acetate/Pramoxine HCl Foam [Proctofoam-Hc Foam] 1 applic RECTAL PRN PRN Ibuprofen [Motrin] 600 mg PO Q6H PRN Lanolin Cream [Lansinoh] 1 yenifer TOPICAL PRN PRN Magnesium Hydroxide [Milk of Magnesia] 30 ml PO PRN PRN Witch Danielle [Tucks Take-Alongs] 1 each TOPICAL PRN PRN oxyCODONE HCL IR [Oxy Ir] 5 mg PO Q3H PRN Procedures and tests throughout hospitalization: Completed Lab Orders 10/15/16 01:35 UA W/ MICRO -CULTURE IF IND [URINE] Routine 10/15/16 01:45 ABO GROUP [HEM] Urgent ANTIBODY SCREEN [HEM] Urgent CBC AUTO DIF, MDIF/RMOR IF IND [HEM] Urgent RH TYPE [HEM] Urgent 10/16/16 06:20 HGB & HCT PANEL [HEM] AMDRAW Pending Orders 10/15/16 01:15 Admit: Inpatient Routine Activity: Ambulate TOLERATED 10/15/16 01:35 URINE CULTURE [RM] Routine 10/15/16 19:15 May shower TOLERATED Post Assessment PER PROTOCOL Vital Signs Q12H Acetaminophen [Tylenol] 650 mg PO Q6H PRN Benzocaine/Lanolin/Aloe [Dermoplast [place]] 1 spray TOPICAL PRN PRN Diphenhydramine [Benadryl] 50 mg PO HS PRN Docusate Sodium [Colace] 100 mg PO Q12H Hc Acetate/Pramoxine HCl Foam [Proctofoam-Hc Foam] 1 applic RECTAL PRN PRN Ibuprofen [Motrin] 600 mg PO Q6H PRN Lanolin Cream [Lansinoh] 1 yenifer TOPICAL PRN PRN Magnesium Hydroxide [Milk of Magnesia] 30 ml PO PRN PRN Witch Danielle [Tucks Take-Alongs] 1 each TOPICAL PRN PRN oxyCODONE HCL IR [Oxy Ir] 5 mg PO Q3H PRN 10/15/16 Dinner Regular [DIET] 10/16/16 Dinner Special Meal (NLC) Labs on day of discharge: Preliminary micro results at discharge 10/15/16 01:35 Urine Culture - Preliminary Urine,Clean Catch
[2016-10-17] MEDS: DOCUSATE SODIUM 100 MG CAPSULE PO SCH ×2 (07:37→09:38)
[2016-10-17 11:37] VITALS: BP 140/80; PULSE 83; RESP 18; TEMP 97.7
== END 2016-10-17 11:30 | disposition home or self-care (01) | DRG 775 ==
LOC: NLCPRO 01:08 → NLC 01:09
PROVIDERS: ADMIT Family Medicine; ATTEND Family Medicine
PROC: 10E0XZZ Delivery of Products of Conception, External Approach (ICD-10-PCS; principal; 2016-10-15)
PROC: 10907ZC Drainage of Amniotic Fluid, Therapeutic from Products of Conception, Via Natural or Artificial Opening (ICD-10-PCS; principal; 2016-10-15)
PROC: 0HQ9XZZ Repair Perineum Skin, External Approach (ICD-10-PCS; principal; 2016-10-15)
DX: O63.1 Prolonged second stage (of labor) (principal); O70.0 First degree perineal laceration during delivery; Z37.0 Single live birth
CPT/HCPCS: 36415; 81001; 85014; 85018; 85025; 86850; 86900; 86901; 87086; J2370; J2765; J2795; J3010; J7120